=== PATIENT | female | born 1990 | race Two or more races ===

== ENCOUNTER 2017-02-16 11:26 | Inpatient (IN) | payer BC, OTHER ==
[2017-02-16 16:14] VITALS: BMI 21.1
[2017-02-16] MEDS ORDERED: guaiFENesin/D-METHORPHAN HB 10 ML UNIT-DOSE CUPS PO PRN (17:15)
[2017-02-16] MEDS ORDERED: P-EPHED 60MG/TRIPROLIDI 2.5MG TABLET PO PRN (17:15)
[2017-02-16] MEDS ORDERED: MAGNESIUM CITRATE 300 ML BOTTLE PO PRN (17:15)
[2017-02-16] MEDS ORDERED: MAG HYDROX/AL HYDROX/SIMETH 30 ML UNIT-DOSE CUP PO PRN (17:15)
[2017-02-16] MEDS ORDERED: LOPERAMIDE HCL 2 MG CAPSULE PO PRN (17:15)
[2017-02-16] MEDS ORDERED: ACETAMINOPHEN 325 MG TABLET (FP) PO PRN (17:15)
[2017-02-16] MEDS ORDERED: MAGNESIUM HYDROX 2400MG/30ML ORAL SUSPENSION 30 ML CUP PO PRN (17:15)
[2017-02-16] MEDS ORDERED: IBUPROFEN 400 MG TABLET (FP) PO PRN (17:15)
[2017-02-16] MEDS ORDERED: MENTHOL/PHENOL 1 EACH UD MM PRN (17:15)
--- NOTE | 2017-02-16 17:35 | HP ---
COWS - Scale Resting Pulse: 0= OR 80 or Below Sweatin= Chills/Flushing Restless Observation: 3= Extraneous Movement Pupil Size: 0= Normal to Room Light Bone or Joint Aches: 2= Severe Diffuse Aches Runny Nose/ Eye Tearin= Runny Nose/Eyes GI Upset > 30mins: 2= Nausea/Diarrhea Tremor Observation: 2= Slight Tremor Visible Yawning Observation: 0= None Anxiety or Irritability: 2=Irritable/Anxious Goose Flesh Skin: 0=Smooth Skin COWS Score: 14 Admission [facility] Chief Complaint: WITHDRAWAL SX Allergies/Adverse Reactions: Allergies Allergy/AdvReac Type Severity Reaction Status Date / Time No Known Allergies Allergy Verified 02/16/17 16:15 History of Present Illness: 27 YEARS OLD FEMALE WITH LONG HISTORY OF HEROIN NICOTINE DEPENDENCE HAS WEIGHT LOSS AND DEPRESSION IS ADMITTED TO DETOX Exam Limitations: No Limitations - Ebola screening Have you traveled outside of the country in the last 21 days: No (N) Have you had contact with anyone from an Ebola affected area: No Have you been sick,other than usual withdrawal symptoms: No Do you have a fever: No - Review of Systems Constitutional: Loss of Appetite, Changes in sleep, Unintentional Wgt. Loss EENT: reports: No Symptoms Reported Respiratory: reports: No Symptoms reported Cardiac: reports: No Symptoms Reported GI: reports: Nausea, Poor Appetite, Poor Fluid Intake, Abdominal cramping : reports: No Symptoms Reported Musculoskeletal: reports: Back Pain, Joint Pain, Muscle Pain, Neck Pain Integumentary: reports: Change in Color (INNER ELBOWS IV HEROIN) Neuro: reports: Tremors Endocrine: reports: No Symptoms Reported Hematology: reports: No Symptoms Reported Psychiatric: reports: Judgement Intact, Orientated x3, Depressed Other Systems: Reviewed and Negative Patient History - Patient Medical History Hx Anemia: No Hx Asthma: No Hx Chronic Obstructive Pulmonary Disease (COPD): No Hx Cancer: No Hx Cardiac Disorders: No Hx Congestive Heart Failure: No Hx Hypertension: No Hx Hypercholesterolemia: No Hx Pacemaker: No HX Cerebrovascular Accident: No Hx Seizures: No Hx Dementia: No Hx Diabetes: No Hx Gastrointestinal Disorders: No Hx Liver Disease: No Hx Genitourinary Disorders: No Hx Sexually Transmitted Disorders: Yes (gonorrhea) Hx Renal Disease (ESRD): No Hx Thyroid Disease: No Hx Human Immunodeficiency Virus (HIV): No Hx Hepatitis C: No Hx Depression: Yes Hx Suicide Attempt: No Hx Bipolar Disorder: No Hx Schizophrenia: No - Patient Surgical History Past Surgical History: Yes Hx Neurologic Surgery: No Hx Cataract Extraction: No Hx Cardiac Surgery: No Hx Lung Surgery: No Hx Breast Surgery: No Hx Breast Biopsy: No Hx Abdominal Surgery: No Hx Appendectomy: Yes (at age 13) Hx Cholecystectomy: No Hx Genitourinary Surgery: No Hx Section: Yes (x2) Hx Orthopedic Surgery: No Hx Hysterectomy: No Anesthesia Reaction: No - PPD History Previous Implant?: Yes Documented Results: Negative w/o proof Implanted On Prior R Admission?: No PPD to be Administered?: Yes - Reproductive History Patient is a Female of Child Bearing Age (11 -55 yrs old): Yes Last Menstrual Period: 01/12/17 Patient : No - Smoking Cessation Smoking history: Current every day smoker Have you smoked in the past 12 months: Yes Aproximately how many cigarettes per day: 10 Cigars Per Day: 0 Hx Chewing Tobacco Use: No Initiated information on smoking cessation: Yes 'Breaking Loose' booklet given: 02/16/17 - Substance & Tx. History Hx Alcohol Use: No Hx Substance Use: Yes Substance Use Type: Cocaine, Heroin Hx Substance Use Treatment: Yes (11/2016 [place]) - Substances Abused Heroin Route: Injection Frequency: Daily Amount used: 5-10 bags Age of first use: 24 Date of Last Use: 02/16/17 Cocaine Route: Injection Frequency: Daily Amount used: $30 Age of first use: 22 Date of Last Use: 02/15/17 Family Disease History - Family Disease History Family History: Unremarkable Admission Physical Exam S - Vital Signs Vital Signs: Vital Signs - 24 hr 02/16/17 16:08 Temperature 97.4 F L Pulse Rate 70 Respiratory 20 Rate Blood Pressure 118/87 - Physical General Appearance: Yes: Appropriately Dressed, Mild Distress, Thin, Tremorous, Irritable, Sweating, Anxious HEENTM: Yes: Hearing grossly Normal, Normal ENT Inspection, Normocephalic, Normal Voice Respiratory: Yes: Chest Non-Tender, Lungs Clear, Normal Breath Sounds, No Respiratory Distress, No Accessory Muscle Use Neck: Yes: Supple, Trachea in good position Breast: Yes: Breasts Symetrical Cardiology: Yes: Regular Rhythm, Regular Rate, S1, S2 Abdominal: Yes: Non Tender, Soft, Increased Bowel Sounds Genitourinary: Yes: Within Normal Limits Back: Yes: Normal Inspection Musculoskeletal: Yes: full range of Motion, Gait Steady, Back pain, Muscle Pain Extremities: Yes: Normal Range of Motion, Non-Tender, Tremors Neurological: Yes: Fully Oriented, Alert, Motor Strength 5/5, Normal Response, Depressed Affect Integumentary: Yes: Warm, Track Melendrez Lymphatic: Yes: Within Normal Limits - Diagnostic (1) Opioid dependence with withdrawal Current Visit: Yes Status: Acute (2) Nicotine dependence Current Visit: Yes Status: Acute Qualifiers: Nicotine product type: cigarettes Substance use status: in withdrawal Qualified Code(s): F17.213 - Nicotine dependence, cigarettes, with withdrawal (3) Weight loss Current Visit: Yes Status: Acute (4) Chronic back pain Current Visit: Yes Status: Chronic Qualifiers: Back pain location: low back pain Back pain laterality: right Sciatica presence: without sciatica Qualified Code(s): M54.5 - Low back pain; G89.29 - Other chronic pain; G89.29 - Other chronic pain (5) Depression (emotion) Current Visit: Yes Status: Suspected Qualifiers: Depression Type: dysthymia Qualified Code(s): F34.1 - Dysthymic disorder Cleared for Admission [facility] - Detox or Rehab [facility] Level of Care: Medically Managed Detox Regimen/Protocol: Methadone [facility] Breath Alcohol Content Breath Alcohol Content: 0 Urine Pregancy Test - Result Urine Test Results: Negative- NO Line Present Urine Drug Screen - Results Drug Screen Negative: No Urine Drug Screen Results: GRACIELA-Cocaine, OPI-Opiates
[2017-02-16] MEDS ORDERED: METHADONE HCL 10 MG TABLET (FOR DETOX USE ONLY) PO ONE ×2 (18:00→23:00)
[2017-02-16] MEDS ORDERED: METHADONE HCL 10 MG TABLET (FOR DETOX USE ONLY) ONE (21:21)
[2017-02-16] MEDS: BACLOFEN 10 MG TABLET (FP) PO PRN (21:23)
[2017-02-16] MEDS: diazePAM 5 MG TABLET PO PRN (21:23)
[2017-02-16] MEDS: THIAMINE HCL 100 MG TABLET (FP) PO SCH (22:42)
[2017-02-16 23:46] LABS: URINE APPEARANCE CLOUDY; URINE BILIRUBIN NEGATIVE (NEGATIVE); URINE BLOOD NEGATIVE (NEGATIVE); URINE COLOR AMBER; URINE GLUCOSE (UA) NEGATIVE (NEGATIVE); URINE KETONE NEGATIVE (NEGATIVE); URINE LEUK ESTERASE NEGATIVE (NEGATIVE); URINE NITRITE NEGATIVE (NEGATIVE); URINE PROTEIN NEGATIVE (NEGATIVE); URINE UROBILINOGEN NEGATIVE mg/dL (0.2-1.0)
--- NOTE | 2017-02-17 07:47 | CONSULT ---
[facility] Psychiatric Consult - Data Date of interview: 02/17/17 Admission source: [facility] Identifying data: This is 27 years old female with psychiatric hospitalization history intoxicated with: Opioids, Cocaine, Nicotine Substance Abuse History: - Smoking Cessation. Smoking history: Current every day smoker. Have you smoked in the past 12 months: Yes. Aproximately how many cigarettes per day: 10. Cigars Per Day: 0. Hx Chewing Tobacco Use: No. Initiated information on smoking cessation: Yes. 'Breaking Loose' booklet given : 02/16/17. - Substance & Tx. History. Hx Alcohol Use: No. Hx Substance Use: Yes. Substance Use Type: Cocaine, Heroin. Hx Substance Use Treatment: Yes (2016 [place]). - Substances Abused. Heroin. Route: Injection. Frequency: Daily. Amount used: 5-10 bags. Age of first use: 24. Date of Last Use: . Cocaine. Route: Injection. Frequency: Daily. Amount used: $30. Age of first use: 22. Date of Last Use: 02/15/17 Medical History: Weight loss Psychiatric History: Patient reports history of depression with most recent psychiatric admsision on [address] [facility] after suicidal attempt by cutting her rigth wrist, 8 stitches applyed. Reports no suicidal ideations since then. Currently taking prior to admission: Trazodone 100mg po qhs Physical/Sexual Abuse/Trauma History: Umclear Additional Comment: Trazodone 100mg po qhs Mental Status Exam - Mental Status Exam Alert and Oriented to: Person Cognitive Function: Fair Patient Appearance: Unkempt Mood: Anxious Affect: Mood Congruent Patient Behavior: Cooperative Speech Pattern: Appropriate Voice Loudness: Normal Thought Process: Goal Oriented Thought Disorder: Being Controlled Suicidal Ideation: Denies Homicidal Ideation: Denies Insight/Judgement: Fair Sleep: Difficulty falling asleep Appetite: Weight loss Muscle strength/Tone: Normal Gait/Station: Normal Additional Comments: Trazodone 100mg po qhs Psychiatric Findings - Problem List ([place] 1, 2,3) (1) Drug-induced mood disorder Current Visit: Yes Status: Acute (2) Cocaine dependence Current Visit: Yes Status: Acute (3) Nicotine dependence Current Visit: Yes Status: Acute Qualifiers: Nicotine product type: cigarettes Substance use status: in withdrawal Qualified Code(s): F17.213 - Nicotine dependence, cigarettes, with withdrawal (4) Opioid dependence with withdrawal Current Visit: Yes Status: Acute - Initial Treatment Plan Initial Treatment Plan: Trazodone 100mg po qhs
[2017-02-17] MEDS: diazePAM 5 MG TABLET PO PRN ×4 (08:02→22:10)
[2017-02-17] MEDS: BACLOFEN 10 MG TABLET (FP) PO PRN ×3 (09:58→22:10)
[2017-02-17] MEDS: NICOTINE POLACRILEX 2 MG GUM BC PRN ×2 (09:59→19:24)
[2017-02-17] MEDS: cloNIDine HCL 0.1 MG TABLET PO SCH ×2 (10:00→22:10)
[2017-02-17] MEDS: NICOTINE 14 MG/24 HOURS TOPICAL PATCH TD SCH (10:00)
[2017-02-17] MEDS ORDERED: METHADONE HCL 10 MG TABLET (FOR DETOX USE ONLY) PO ONE (10:00)
[2017-02-17] MEDS: PRENATAL VITAMINS W/ FOLIC ACID TABLET (FP) PO SCH (10:00)
[2017-02-17 10:09] LABS: MEAN PLT VOLUME 8.7 fl (7.5-11.1); PLATELET COUNT 346 K/MM3 (134-434); RDW 17.1 % (11.6-15.6)
[2017-02-17 10:27] LABS: ALBUMIN 3.8 g/dl (3.4-5.0); ALK PHOS 92 U/L (45-117); ANION GAP 7 (8-16); BILIRUBIN,TOTAL 0.3 mg/dL (0.2-1.0); CALCIUM 9.6 mg/dL (8.5-10.1); CO2 30 mmol/L (21-32); CREATININE 0.8 mg/dL (0.55-1.02); GLUCOSE,RANDOM 86 mg/dL (74-106); SGOT/AST 16 U/L (15-37); SGPT/ALT 37 U/L (12-78)
[2017-02-17] MEDS ORDERED: SODIUM POLYSTYRENE SULFONATE 15 GM/60 ML BOTTLE PO ONE (10:56)
--- NOTE | 2017-02-17 11:01 | PN ---
S COWS - Scale Resting Pulse: 1= MD 81-100 Sweatin=Flushed/Facial Moisture Restless Observation: 1= Difficult to Sit Still Pupil Size: 0= Normal to Room Light Bone or Joint Aches: 2= Severe Diffuse Aches Runny Nose/ Eye Tearin= Runny Nose/Eyes GI Upset > 30mins: 2= Nausea/Diarrhea Tremor Observation of Outstretched Hands: 2= Slight Tremor Visible Yawning Observation: 2= >3x During Session Anxiety or Irritability: 2=Irritable/Anxious Goose Flesh Skin: 3=Piloerection COWS Score: 19 S Progress Note (SOAP) Subjective: agitation sweats shakes interrupted sleep body aches irritable chills nausea Objective: 02/17/17 11:02 Vital Signs Temperature 98.6 F 02/17/17 09:56 Pulse Rate 96 H 02/17/17 09:56 Respiratory Rate 18 02/17/17 09:56 Blood Pressure 124/84 02/17/17 09:56 O2 Sat by Pulse Oximetry (%) Laboratory Tests 02/16/17 02/17/17 02/17/17 21:35 07:00 07:00 WBC 6.0 RBC 5.45 H Hgb 12.6 Hct 39.2 MCV 72.0 L MCH 23.0 L MCHC 32.0 RDW 17.1 H Plt Count 346 MPV 8.7 Sodium 140 Potassium 5.2 H Chloride 103 Carbon Dioxide 30 Anion Gap 7 L BUN 12 Creatinine 0.8 Creat Clearance w eGFR > 60 Random Glucose 86 Calcium 9.6 Total Bilirubin 0.3 AST 16 ALT 37 Alkaline Phosphatase 92 Total Protein 8.0 Albumin 3.8 Urine Color Lizzie Urine Appearance Cloudy Urine pH 5.0 Ur Specific [place] 1.016 Urine Protein Negative Urine Glucose (UA) Negative Urine Ketones Negative Urine Blood Negative Urine Nitrite Negative Urine Bilirubin Negative Urine Urobilinogen Negative increased potassium 5.2; kayexalate 15gm x one ordered aaox3 ambulating no acute distress Assessment: 02/17/17 11:03 withdrawal sx Plan: continue detox increase fluids clonidine 0.1 bid with parameters kayexalate x one repeat labs
[2017-02-17 11:08] LABS: HIV 1 & 2 AB NEGATIVE; HIV 1 AGp24 NEGATIVE
--- NOTE | 2017-02-17 11:44 | EKG ---
Test Reason : Blood Pressure : / mmHG Vent. Rate : 076 BPM Atrial Rate : 076 BPM P-R Int : 154 ms QRS Dur : 084 ms QT Int : 388 ms P-R-T Axes : 053 076 051 degrees QTc Int : 436 ms NORMAL SINUS RHYTHM WITH SINUS ARRHYTHMIA POSSIBLE LEFT ATRIAL ENLARGEMENT BORDERLINE ECG NO PREVIOUS ECGS AVAILABLE Confirmed by JERAD AQUINO MD ([id number]) on 02/17/2017 11:44:14 AM Referred By: Confirmed By:JERAD AQUINO MD
[2017-02-17 14:43] LABS: URINE LEUK ESTERASE Negative (NEGATIVE)
[2017-02-17] MEDS ORDERED: traZODone HCL 100 MG TABLET (FP) PO SCH (22:00)
[2017-02-17] MEDS: THIAMINE HCL 100 MG TABLET (FP) PO SCH (22:10)
[2017-02-18] MEDS: diazePAM 5 MG TABLET PO PRN (07:46)
--- NOTE | 2017-02-18 09:22 | PN ---
[facility] Progress Note Note: pt had a +ppd; chest x-ray ordered, results show chest x-ray is good..no negative results. pt received her medication then insisted on leaving. pt signed out AMA. Pt states she wants to go home. pt refused to stay even after being spoken to to stay, pt still insisted on leaving.
[2017-02-18] MEDS ORDERED: HYDROCORTISONE 1% TOPICAL LOTION 118 ML BOTTLE TP PRN (09:48)
[2017-02-18] MEDS: cloNIDine HCL 0.1 MG TABLET PO SCH (09:55)
[2017-02-18] MEDS: BACLOFEN 10 MG TABLET (FP) PO PRN (09:55)
[2017-02-18] MEDS: PRENATAL VITAMINS W/ FOLIC ACID TABLET (FP) PO SCH (09:55)
[2017-02-18] MEDS: NICOTINE 14 MG/24 HOURS TOPICAL PATCH TD SCH (09:56)
[2017-02-18] MEDS ORDERED: METHADONE HCL 5 MG TABLET (FOR DETOX USE ONLY) PO ONE (10:00)
[2017-02-18 10:22] VITALS: BP 122/80; PULSE 114; TEMP 97.2
--- NOTE | 2017-02-18 10:37 | DS ---
[facility] Detox Discharge Summary Admission Date: 02/16/17 Discharge Date: 02/18/17 - History Present History: Cocaine Dependence, Opioid Dependence - Physical Exam Results Vital Signs: Vital Signs Temperature 97.2 F L 02/18/17 10:00 Pulse Rate 114 H 02/18/17 10:00 Respiratory Rate 20 02/18/17 10:00 Blood Pressure 122/80 02/18/17 10:00 O2 Sat by Pulse Oximetry (%) - Treatment Hospital Course: Detox Protocol Followed, Detoxed Safely, Responded well, Discharged Condition Good, Rehab Referral Accepted - Medication Discharge Medications: Ambulatory Orders Trazodone HCl [Desyrel -] 100 mg PO HS #30 tablet 02/17/17 - Diagnosis (1) Cocaine dependence Current Visit: Yes Status: Chronic Qualifiers: Substance use status: uncomplicated Qualified Code(s): F14.20 - Cocaine dependence, uncomplicated (2) Drug-induced mood disorder Current Visit: Yes Status: Acute (3) Nicotine dependence Current Visit: Yes Status: Chronic Qualifiers: Nicotine product type: cigarettes Substance use status: uncomplicated Qualified Code(s): F17.210 - Nicotine dependence, cigarettes, uncomplicated (4) Opioid dependence with withdrawal Current Visit: Yes Status: Chronic (5) Weight loss Current Visit: Yes Status: Acute (6) Chronic back pain Current Visit: Yes Status: Chronic Qualifiers: Back pain location: low back pain Back pain laterality: right Sciatica presence: without sciatica Qualified Code(s): M54.5 - Low back pain; G89.29 - Other chronic pain; G89.29 - Other chronic pain (7) Depression (emotion) Current Visit: Yes Status: Suspected Qualifiers: Depression Type: dysthymia Qualified Code(s): F34.1 - Dysthymic disorder - AMA Did Patient Leave Against Medical Advice: Yes
--- NOTE | 2017-02-18 10:53 | EKG ---
Test Reason : Blood Pressure : / mmHG Vent. Rate : 102 BPM Atrial Rate : 102 BPM P-R Int : 148 ms QRS Dur : 086 ms QT Int : 346 ms P-R-T Axes : 046 078 049 degrees QTc Int : 450 ms SINUS TACHYCARDIA OTHERWISE NORMAL ECG WHEN COMPARED WITH ECG OF 16-FEB-2017 21:34, NO SIGNIFICANT CHANGE WAS FOUND Confirmed by MD ENMANUEL, IZABELLA ([id number]) on 02/18/2017 10:52:37 AM Referred By: Confirmed By:IZABELLA SINGER MD
[2017-02-18 11:11] LABS: BASOPHIL 1.1 % (0-2.0); EOSINOPHIL 7.4 % (0-4.5); MCHC 32.2 g/dl (32.0-36.0); MEAN CELL VOLUME 71.6 fl (80-96); MEAN PLT VOLUME 8.9 fl (7.5-11.1); NEUTROPHILS 41.9 % (42.8-82.8); PLATELET COUNT 310 K/MM3 (134-434); WHITE BLOOD COUNT 5.6 K/mm3 (4.0-10.0)
[2017-02-19] MEDS ORDERED: METHADONE HCL 5 MG TABLET (FOR DETOX USE ONLY) PO ONE (10:00)
[2017-02-20] MEDS ORDERED: METHADONE HCL 10 MG TABLET (FOR DETOX USE ONLY) PO ONE (10:00)
[2017-02-21] MEDS ORDERED: METHADONE HCL 5 MG TABLET (FOR DETOX USE ONLY) PO ONE (06:00)
== END 2017-02-18 10:00 | disposition left against medical advice (07) | DRG 894 ==
LOC: YASAS 11:26 → Y6N 19:32
PROVIDERS: ADMIT Internal Medicine; ATTEND Internal Medicine
PROC: HZ2ZZZZ Detoxification Services for Substance Abuse Treatment (ICD-10-PCS; principal; 2017-02-16)
DX: F11.23 Opioid dependence with withdrawal (principal); F14.20 Cocaine dependence, uncomplicated; F17.210 Nicotine dependence, cigarettes, uncomplicated; F19.24 Other psychoactive substance dependence with psychoactive substance-induced mood disorder; F34.1 Dysthymic disorder; M54.5 Low back pain; G89.29 Other chronic pain; R63.4 Abnormal weight loss; Z68.21 Body mass index [BMI] 21.0-21.9, adult
CPT/HCPCS: 36415; 71020-TC; 80053; 81003; 85025; 85027; 86593; 87389; 93005; 93010; J0475